=== PATIENT | female | born 1995 | race Caucasian/White ===

== ENCOUNTER 2018-10-24 15:45 | Inpatient (IN) | payer OTHER ==
[~2018-10-24] VITALS: Ht 160 cm; Wt 76.7 kg
[2018-10-24] MEDS ORDERED: AZITHROMYCIN 250 MG TABLET PO ONE (17:00)
[2018-10-24] MEDS: RINGERS SOLUTION,LACTATED 1,000 ML IV SCH ×3 (18:54→20:48)
[2018-10-24] MEDS ORDERED: OXYTOCIN 30 UNITS/LACT RINGERS 500 ML IV ONE (19:00)
[2018-10-24] MEDS ORDERED: RINGERS SOLUTION,LACTATED 1,000 ML IV SCH (19:00)
[2018-10-24] MEDS ORDERED: TERBUTALINE SULFATE 1 MG/ML VIAL SQ PRN (19:00)
[2018-10-24] MEDS ORDERED: RINGERS SOLUTION,LACTATED 1,000 ML IV PRN (19:00)
[2018-10-24] MEDS ORDERED: METOCLOPRAMIDE HCL 5 MG/ML 2 ML VIAL IVP PRN (19:00)
[2018-10-24] MEDS ORDERED: CITRIC ACID/SODIUM CITRATE 30 ML SOLUTION UDCUP PO PRN (19:00)
[2018-10-24] MEDS ORDERED: LIDOCAINE/PF 1% 30 ML VIAL INJ PRN (19:00)
[2018-10-24] MEDS ORDERED: MINERAL OIL 30 ML UDCUP VG ONE (19:15)
[2018-10-24] MEDS ORDERED: AMPICILLIN SODIUM 2 GM/NS 100 ML IV ONE (19:45)
[2018-10-24 19:53] LABS: BASOPHILS % (AUTO) 0.1 % (0.0-2.0); EOSINOPHILS % (AUTO) 0.2 % (1.0-6.0); HEMATOCRIT 33.3 % (36-46); HEMOGLOBIN 11.2 g/dL (12.0-16.0); LYMPHOCYTES % (AUTO) 20.1 % (22.0-44.0); MEAN CORPUSCULAR HGB CONC 33.5 G/dL (31.0-37.0); MEAN CORPUSCULAR VOLUME 81 fL (80-100); MONOCYTES % (AUTO) 10.5 % (2.0-9.0); NEUTROPHILS # (AUTO) 6.8 K/uL (1.8-7.7); NEUTROPHILS % (AUTO) 69.1 % (40.0-70.0); PLATELET COUNT (AUTO)-OB 190 K/uL (150-450); RED BLOOD CELL COUNT(AUTO) 4.13 MIL/uL (4.00-5.20); RED CELL DISTRIBUTION WIDTH 15.6 % (11.5-14.5)
[2018-10-24] MEDS ORDERED: ROPIVACAINE HCL/PF 0.2% 100 ML ED PRN (19:56)
[2018-10-24] MEDS ORDERED: NALBUPHINE HCL 10 MG/ML VIAL IVP PRN (20:00)
[2018-10-24] MEDS ORDERED: OXYGEN THERAPY IH SCH (20:00)
[2018-10-24] MEDS ORDERED: DiphenhydrAMINE HCL 50 MG/ML VIAL IVP PRN (20:00)
[2018-10-24] MEDS ORDERED: ONDANSETRON HCL 4 MG/2 ML VIAL IVP PRN (20:00)
[2018-10-24] MEDS ORDERED: ROPIVACAINE HCL/PF 0.2% 100 ML ED ONE (20:13)
[2018-10-25] MEDS: RINGERS SOLUTION,LACTATED 1,000 ML IV SCH ×2 (00:05→08:34)
[2018-10-25] MEDS: AMPICILLIN SODIUM 1 GM/NS 50 ML IV SCH ×2 (00:06→03:51)
[2018-10-25] MEDS ORDERED: OXYTOCIN 30 UNITS/LACT RINGERS 500 ML IV PRN (06:38)
[2018-10-25] MEDS ORDERED: OXYTOCIN 30 UNITS/LACT RINGERS 500 ML IV ONE (07:36)
[2018-10-25] MEDS ORDERED: LANOLIN 7 GM OINTMENT TP PRN (07:45)
[2018-10-25] MEDS ORDERED: OxyCODONE HCL/ACETAMINOPHEN 5-325 MG TABLET PO PRN (07:45)
[2018-10-25] MEDS ORDERED: BENZOCAINE 20%/MENTHOL 56 GM SPRAY CANISTER TP PRN (07:45)
[2018-10-25] MEDS ORDERED: GLYCERIN/WITCH HAZEL LEAF 40 PADS JAR TP PRN (07:45)
[2018-10-25] MEDS: IBUPROFEN 800 MG TABLET PO PRN ×3 (08:33→22:00)
[2018-10-25] MEDS: OxyCODONE HCL/ACETAMINOPHEN 5-325 MG TABLET PO PRN (15:42)
[2018-10-25] MEDS ORDERED: MEASLES/MUMPS/RUBELLA VACCINE, LIVE 0.5 ML/VIAL SQ ONE (19:00)
[2018-10-25] MEDS: MAGNESIUM HYDROXIDE SUSPENSION 30 ML UDCUP PO PRN (21:54)
[2018-10-26 05:29] LABS: BASOPHILS % (AUTO) 0.3 % (0.0-2.0); EOSINOPHILS % (AUTO) 0.4 % (1.0-6.0); HEMATOCRIT 25.9 % (36-46); HEMOGLOBIN 8.5 g/dL (12.0-16.0); LYMPHOCYTES # (AUTO) 3.5 K/uL (1.0-4.8); LYMPHOCYTES % (AUTO) 35.6 % (22.0-44.0); MEAN CORPUSCULAR HEMOGLOBIN 27.1 pg (26.0-34.0); MEAN CORPUSCULAR HGB CONC 32.9 G/dL (31.0-37.0); MEAN CORPUSCULAR VOLUME 82 fL (80-100); MONOCYTES % (AUTO) 9.9 % (2.0-9.0); NEUTROPHILS # (AUTO) 5.3 K/uL (1.8-7.7); NEUTROPHILS % (AUTO) 53.8 % (40.0-70.0); PLATELET COUNT (AUTO)-OB 148 K/uL (150-450); RED BLOOD CELL COUNT(AUTO) 3.14 MIL/uL (4.00-5.20); RED CELL DISTRIBUTION WIDTH 15.4 % (11.5-14.5)
[2018-10-26] MEDS: MAGNESIUM HYDROXIDE SUSPENSION 30 ML UDCUP PO PRN (08:10)
[2018-10-26] MEDS: IBUPROFEN 800 MG TABLET PO PRN (08:10)
[2018-10-26] MEDS: OxyCODONE HCL/ACETAMINOPHEN 5-325 MG TABLET PO PRN (08:10)
[2018-10-26] MEDS ORDERED: DSS100 PO (09:47)
[2018-10-26] MEDS ORDERED: IBUP-2071 PO (09:47)
[2018-10-26] MEDS ORDERED: PREN-155 PO (09:48)
[2018-10-26] MEDS ORDERED: FERR-89 PO (09:48)
== END 2018-10-26 11:50 | disposition home or self-care (01) | DRG 807 ==
LOC: OBSVTOIN 15:45 → 4S 15:45
PROVIDERS: ADMIT Obstetrics & Gynecology; ATTEND Obstetrics & Gynecology
PROC: 10E0XZZ Delivery of Products of Conception, External Approach (ICD-10-PCS; principal; 2018-10-25)
PROC: 0KQM0ZZ Repair Perineum Muscle, Open Approach (ICD-10-PCS; 2018-10-25)
PROC: 3E0R3BZ Introduction of Anesthetic Agent into Spinal Canal, Percutaneous Approach (ICD-10-PCS; 2018-10-25)
PROC: 00HU33Z Insertion of Infusion Device into Spinal Canal, Percutaneous Approach (ICD-10-PCS; 2018-10-25)
PROC: 3E0234Z Introduction of Serum, Toxoid and Vaccine into Muscle, Percutaneous Approach (ICD-10-PCS; 2018-10-26)
DX: O70.1 Second degree perineal laceration during delivery (principal); Z37.0 Single live birth; Z3A.39 39 weeks gestation of pregnancy; Z23 Encounter for immunization
CPT/HCPCS: 86850; 86900; 86901; 90707; J0290; J2590; J2795; J7120